=== PATIENT | female | born 1975 | race Caucasian/White ===

== ENCOUNTER 2020-08-13 15:31 | Emergency (ER) | payer OTHER ==
[~2020-08-13] VITALS: Ht 152.4 cm; Wt 59.0 kg
[~2020-08-13 15:31] MED LIST: BACTRIM DS TAB1 EACH PO; BUSPIRONE HCL10 MG PO; CLEOCIN HCL150 MG PO; CLEOCIN HCL300 MG PO; HYDROCODONE-AP1 EAC6 PO; IBUPROFEN 800800 M1 PO; KEFLEX500 MG PO; MUPIROCIN22 GM TOP; NORCO 5-325 TA1 EACH PO; PEPCID20 MG PO; ZOFRAN ODT4 MG PO
[2020-08-13 16:25] LABS: ABSOLUTE EOSINOPHILS 0.3 thou/uL (0.0-0.7); ABSOLUTE LYMPHOCYTES 1.5 thou/uL (0.8-5.3); ABSOLUTE MONOCYTES 0.8 thou/uL (0.0-1.2); ABSOLUTE NEUTROPHILS 7.4 thou/uL (1.6-8.1); BASOPHILS 0.1 %; EOSINOPHILS 3.2 %; HEMATOCRIT 41.8 % (37.0-47.0); HEMOGLOBIN 14.4 gm/dL (12.0-15.0); LYMPHOCYTES 15.2 %; MCH 32.2 pg (26.0-34.0); MCHC 34.4 g/dL (28.0-37.0); MCV 93.6 fL (80.0-100.0); MONOCYTES 8.2 %; MPV 7.8 fl. (7.2-11.1); NUCLEATED RBCS 0 /100WBC; PLATELET COUNT* 292 thou/uL (150-400); POLYS 73.3 %; RBC 4.47 mil/uL (4.20-5.00); RDW-CV 13.8 % (10.5-14.5); WBC 10.1 thou/uL (4.0-11.0)
[2020-08-13 16:44] LABS: CALCIUM 8.1 mg/dL (8.5-10.1); POTASSIUM 3.7 mmol/L (3.5-5.1)
[2020-08-13 16:48] LABS: ALBUMIN 3.2 g/dL (3.4-5.0); TOTAL BILIRUBIN 0.3 mg/dL (<0.1-1.0); TOTAL PROTEIN 6.8 g/dL (6.4-8.2)
[2020-08-13 17:29] LABS: URINE BILIRUBIN NEGATIVE (Negative); URINE BLOOD NEGATIVE (Negative); URINE COLOR YELLOW; URINE GLUCOSE-RANDOM NEGATIVE (Negative); URINE KETONES NEGATIVE (Negative); URINE LEUKOCYTES-REFLEX NEGATIVE (Negative); URINE PROTEIN NEGATIVE (Negative); URINE UROBILINOGEN 0.2 E.U./dl (0.2-1.0)
[2020-08-13 17:30] LABS: URINE CLARITY HAZY; URINE NITRITE-REFLEX POSITIVE (Negative)
[2020-08-13 17:37] LABS: SQUAMOUS 4-10 Moderate /LPF (0-3)
[2020-08-13 17:38] LABS: BACTERIA-REFLEX >30 Many /HPF (None Seen); CASTS None Seen /LPF (None Seen); CRYSTALS None Seen /LPF (None Seen); URINE RBC None Seen /HPF (0-2); URINE WBC-REFLEX 0-5 Rare /HPF (0-5)
[2020-08-13] MEDS ORDERED: ONDANSETRON ODT4 MG PO ×2 (18:50→18:52)
[2020-08-13] MEDS ORDERED: FLAGYL500 M1 PO (18:52)
[2020-08-13] MEDS ORDERED: CIPRO500 M1 PO (18:52)
[2020-08-13 19:07] VITALS: BP 103/60
== END 2020-08-13 19:08 | disposition home or self-care (01) ==
LOC: M.ERS 15:31
PROVIDERS: Physician Assistant
DX: K52.9 Noninfective gastroenteritis and colitis, unspecified (principal); N39.0 Urinary tract infection, site not specified; N83.202 Unspecified ovarian cyst, left side; R11.2 Nausea with vomiting, unspecified; Z20.828 Contact with and (suspected) exposure to other viral communicable diseases; Z86.14 Personal history of Methicillin resistant Staphylococcus aureus infection; Z85.43 Personal history of malignant neoplasm of ovary; Z91.040 Latex allergy status; Z91.018 Allergy to other foods